=== PATIENT | female | born 1990 | race American Indian/Alaskan Native ===

== ENCOUNTER 2019-02-20 13:56 | Outpatient (CLI) | payer OTHER | END 2019-02-20 21:25 | disposition home or self-care (01) | LOC: OBS/DEL 13:56 | DX: O26.842 Uterine size-date discrepancy, second trimester (principal); O26.892 Other specified pregnancy related conditions, second trimester; O35.8XX1 Maternal care for other (suspected) fetal abnormality and damage, fetus 1; R10.2 Pelvic and perineal pain ==

== ENCOUNTER 2019-05-28 19:23 | Inpatient (IN) | payer OTHER ==
[~2019-05-28] VITALS: Ht 152.4 cm; Wt 70.8 kg
[2019-05-28] MEDS ORDERED: PRENATAL CAPLE1 EAC1 PO (20:09)
[2019-05-28] MEDS ORDERED: VITAMIN C100 MG PO (20:09)
== END 2019-05-31 17:04 | disposition home or self-care (01) | DRG 788 ==
LOC: LDR 19:23 → OB/GYN 05-29 18:06
PROVIDERS: ADMIT Obstetrics & Gynecology
PROC: 3E0P7VZ Introduction of Hormone into Female Reproductive, Via Natural or Artificial Opening (ICD-10-PCS; 2019-05-28)
PROC: 3E033VJ Introduction of Other Hormone into Peripheral Vein, Percutaneous Approach (ICD-10-PCS; 2019-05-28)
PROC: 4A1HXCZ Monitoring of Products of Conception, Cardiac Rate, External Approach (ICD-10-PCS; 2019-05-28)
PROC: 10D00Z1 Extraction of Products of Conception, Low, Open Approach (ICD-10-PCS; principal; 2019-05-29 17:00)
DX: O61.0 Failed medical induction of labor (principal); Z3A.40 40 weeks gestation of pregnancy; Z37.0 Single live birth